=== PATIENT | male | born 1970 | race Caucasian/White ===

== ENCOUNTER 2016-06-19 00:53 | Emergency (ER) | payer MEDICAID ==
[~2016-06-19] VITALS: Ht 180.3 cm; Wt 77.1 kg
[2016-06-19] MEDS ORDERED: IBUPROFEN600 MG ORAL (02:25)
[2016-06-19 02:50] VITALS: BP_SYST 121; BP_SYST 129; BP_DIAS 67; BP_DIAS 87
--- NOTE | 2016-06-19 03:10 | Emergency Room Report ---
History of Present Illness General Chief Complaint: Lower Extremity Injury Source: Patient Present Illness HPI 45-year-old male presents to ED complaining of left ankle pain. States that yesterday he rolled his ankle, however he walked all day on it. Notes pain and swelling to left ankle, throbbing, 8/10, nonradiating. Worse with walking but is able to bear weight. Denies any other injuries. Denies any other associated symptoms Allergies: Coded Allergies: No Known Allergies (Unverified , 06/19/16) Patient History Past Medical History: none Past Surgical History: none Pertinent Family History: none Social History: Denies: alcohol use, drug use, smoking Immunizations: UTD Reviewed Nursing Documentation: PMH: Agreed, PSxH: Agreed Review of Systems All Other Systems: negative except mentioned in HPI Physical Exam Vital Signs Date Time Temp Pulse Resp B/P Pulse Ox O2 Delivery O2 Flow Rate FiO2 06/19/16 01:05 97.7 81 16 129/87 100 Room Air Sp02 EP Interpretation: reviewed, normal General Appearance: no apparent distress, alert, GCS 15, non-toxic Head: normocephalic Eyes: bilateral eye PERRL, bilateral eye normal inspection ENT: normal ENT inspection Neck: normal inspection Respiratory: normal inspection Cardiovascular #1: normal inspection Gastrointestinal: normal inspection Rectal: deferred Genitourinary: no CVA tenderness Musculoskeletal: swelling - L ankle Neurologic: alert, oriented x3, responsive, motor strength/tone normal, sensory intact, speech normal Psychiatric: normal inspection Skin: normal inspection Lymphatic: normal inspection Procedures Splinting Splinting : Consent: Verbal Pre-Made Type: KAY wrap - L ankle Pre-Proc Neuro Vasc Exam: normal Post-Proc Neuro Vasc Exam: normal Patient Tolerated: Well Complications: None Medical Decision Making Diagnostic Impression: Primary Impression: Ankle sprain Qualified Codes: S93.402A - Sprain of unspecified ligament of left ankle, initial encounter ER Course Hospital Course 45-year-old M presents to ED complaining of L ankle pain s/p trip and fall Differential diagnoses include: Fracture, dislocation, sprain, contusion Clinical course Patient placed on stretcher. After initial history and physical, I ordered pain medications and Xrays of L ankle Xrays prelim read shows no acute fracture/dislocation. placed in kay wrap, given crutches Diagnosis - ankle sprain Stable and discharged to home with prescription for Motrin. apply ice, keep elevated. weight bear as tolerated. Followup with PMD. Return to ED if symptoms recur or worsen Other X-Ray Diagnostic Results Other X-Ray Diagnostic Results : X-Ray Ordered: L ankle EP Interpretation: Yes Findings: no fractures, no dislocation, no soft tissue swelling Number of Views: 3 Last Vital Signs Date Time Temp Pulse Resp B/P Pulse Ox O2 Delivery O2 Flow Rate FiO2 06/19/16 02:50 97.7 16 129/87 100 Room Air 06/19/16 02:50 97 Status: improved Disposition: HOME, SELF-CARE Condition: Stable Scripts Ibuprofen* (MOTRIN*) 600 Mg Tablet 600 MG ORAL Q8H Y for For Pain, #30 TAB 0 Refills Prov: SHANNON CAVAZOS M.D. 06/19/16 Referrals: NOT CHOSEN AALIYAH/,REFERRING (PCP) Patient Instructions: Ankle Sprain SHANNON CAVAZOS M.D. Jun 19, 2016 03:10
--- NOTE | 2016-06-19 13:41 | Diagnostic Imaging Report ---
Indications: Left ankle trauma, pain Technique: 4 views left ankle. Findings: Comparison: None Anterolateral soft tissue swelling. No fracture, dislocation, joint space widening , soft tissue foreign body or gas, medial soft tissue swelling, or other acute changes are identified. IMPRESSION: Suspected ATFL sprain No other evidence of acute injury.
== END 2016-06-19 02:50 | disposition home or self-care (01) ==
LOC: EMR 01:15
DX: S93.402A Sprain of unspecified ligament of left ankle, initial encounter (principal); X50.1XXA Overexertion from prolonged static or awkward postures, initial encounter; Y92.9 Unspecified place or not applicable
CPT/HCPCS: 29540; 99283

== ENCOUNTER 2016-09-04 20:10 | Emergency (ER) | payer MEDICAID ==
[~2016-09-04] VITALS: Ht 180.3 cm; Wt 70.3 kg
[~2016-09-04 20:10] MED LIST: IBUPROFEN600 MG ORAL
[2016-09-04] MEDS ORDERED: NKM (20:23)
[2016-09-04 20:36] VITALS: BP 135/76
[2016-09-04] MEDS ORDERED: PERMETHRIN60 GM TOPIC (20:59)
[2016-09-04 21:16] VITALS: BP 135/76
--- NOTE | 2016-09-06 14:27 | Emergency Room Report ---
History of Present Illness General Chief Complaint: General Complaint Source: Patient Present Illness HPI Patient is a 45-year-old male who presented after increased generalized body itching. The patient reported having recent insect bites. He reported picking at his skin and removing some insects. He denies any tick bites. He denied using drugs. He denied any fever. He reported having some itchiness to the areas of concern Allergies: Coded Allergies: No Known Allergies (Unverified , 06/19/16) Patient History Past Medical History: see triage record Nursing Documentation-[facility] Past Medical History: No History, Except For Review of Systems All Other Systems: negative except mentioned in HPI Physical Exam Vital Signs Date Time Temp Pulse Resp B/P Pulse Ox O2 Delivery O2 Flow Rate FiO2 09/04/16 20:19 98.6 96 14 135/76 97 Room Air General Appearance: well appearing, no apparent distress, alert, GCS 15 Head: normocephalic, atraumatic ENT: hearing grossly normal, normal voice Neck: full range of motion, supple Respiratory: no respiratory distress, speaking full sentences Musculoskeletal: normal inspection, back normal, no calf tenderness Neurologic: normal inspection, alert, oriented x3, responsive, channel cementer III-XII nml as tested, normal gait Psychiatric: mood/affect normal Skin: other - small papular lesions to extremities, scalp Medical Decision Making Diagnostic Impression: Primary Impression: Insect bite ER Course Patient presented for skin rash. Differential diagnosis included was not limited to Elam-Dimitrios syndrome, , insect bite, urticaria, erythema multiforme, contact dermatitis. Patient's benign exam and does not appear to require any further imaging or laboratory testing at this time. The patient did not appear to have any signs of infection at this time. The patient was given a prescription for permethrin cream. The patient is advised to take over- the-counter antihistamines for itching and hydrocortisone cream. The patient is advised to follow up with primary care doctor in 1-2 days. Patient is advised to return if any worsening condition or if any changes in status that are concerning. Last Vital Signs Date Time Temp Pulse Resp B/P Pulse Ox O2 Delivery O2 Flow Rate FiO2 09/04/16 21:16 98.6 14 135/76 97 Room Air 09/04/16 20:19 96 Status: improved Disposition: HOME, SELF-CARE Condition: Stable Scripts Permethrin* (ELIMITE*) 60 Gm Cream..g. 1 APPLIC TOPIC ONCE, #1 TUBE 0 Refills Apply cream from head to toe; leave on for 8-14 hours before washing off with water Prov: Nick Mcmanus 09/04/16 Patient Instructions: Insect Bite Nick Mcmanus Sep 06, 2016 14:27
== END 2016-09-04 21:16 | disposition home or self-care (01) ==
LOC: EMR 20:53
DX: T14.8 Other injury of unspecified body region (principal); W57.XXXA Bitten or stung by nonvenomous insect and other nonvenomous arthropods, initial encounter; Y92.9 Unspecified place or not applicable; R21 Rash and other nonspecific skin eruption
CPT/HCPCS: 99283

== ENCOUNTER 2018-09-10 22:30 | Emergency (ER) | payer MEDICAID ==
[~2018-09-10] VITALS: Ht 180.3 cm; Wt 72.6 kg
[~2018-09-10 22:30] MED LIST changes: +NKM; +PERMETHRIN60 GM TOPIC
--- NOTE | 2018-09-10 22:47 | NUR ---
ER Nurse Note: Pt walked in to ER from street c/o lower bilateral pain and swelling. On appearance, pt is red from head to toe. Pt stated he has 5/10 pain when he walks since last night. Pt a&ox4, VSS. Pt ambulatory. ERMD at pt side; will continue to [facility].
[2018-09-10] MEDS ORDERED: DOXYCYCLINE MO100 MG ORAL (22:51)
[2018-09-10] MEDS ORDERED: IBUPROFEN600 MG ORAL (22:51)
--- NOTE | 2018-09-10 22:51 | Emergency Room Report ---
History of Present Illness General Chief Complaint: Abdominal Pain Source: Patient Present Illness HPI Is a 47-year-old male with no past medical history. He presents with chief complaint of bilateral feet pain. Onset today. He said there is swollen. Been walking on it all day. No nausea no vomiting. No fever chills. Denies any other complaint. Pain is 8 out of 10. Worse with walking. Allergies: Coded Allergies: No Known Allergies (Unverified , 06/19/16) Patient History Past Medical History: see triage record, old chart reviewed Past Surgical History: none Pertinent Family History: none Social History: Denies: smoking Immunizations: other Reviewed Nursing Documentation: PMH: Agreed; PSxH: Agreed Nursing Documentation-PMH Past Medical History: No History, Except For Review of Systems Eye: Denies: eye pain, blurred vision ENT: Denies: ear pain, nose congestion, throat swelling Respiratory: Denies: cough, shortness of breath Cardiovascular: Denies: chest pain, palpitations Gastrointestinal: Denies: abdominal pain, diarrhea, nausea, vomiting Musculoskeletal: Reports: muscle pain; Denies: back pain, joint pain Skin: Denies: rash Neurological: Denies: headache, numbness Endocrine: Denies: increased thirst, increased urine Hematologic/Lymphatic: Denies: easy bruising All Other Systems: negative except mentioned in HPI Physical Exam Vital Signs Date Time Temp Pulse Resp B/P (MAP) Pulse Ox O2 Delivery O2 Flow Rate FiO2 09/10/18 22:38 99.0 100 22 126/81 (96) 95 Room Air Vitals normal Sp02 EP Interpretation: reviewed, normal General Appearance: well appearing, no apparent distress, alert, other - Disheveled Head: normocephalic, atraumatic Eyes: bilateral eye PERRL, bilateral eye EOMI ENT: hearing grossly normal, normal pharynx Neck: full range of motion, supple, no meningismus Respiratory: chest non-tender, lungs clear, normal breath sounds Cardiovascular #1: regular rate, rhythm, no murmur Gastrointestinal: normal bowel sounds, non tender, no mass, no organomegaly, no bruit, non-distended Musculoskeletal: back normal, gait/station normal, normal range of motion, other - Bilateral feet: No edema. Mild edema to right ankle. He has ulceration to the dorsum of his right foot. No drainage. No crepitance. Good pulses. Neurologic: alert, oriented x3 Psychiatric: mood/affect normal Skin: other - He is severely sunburn from head to ankle Medical Decision Making Diagnostic Impression: Primary Impression: Cellulitis of foot ER Course Patient with cellulitis of his foot/feet. No trauma. No crepitance. Unlikely to be DVT. He is walking around without difficulty. Will discharge home. Last Vital Signs Date Time Temp Pulse Resp B/P (MAP) Pulse Ox O2 Delivery O2 Flow Rate FiO2 09/10/18 22:38 99.0 100 22 126/81 (96) 95 Room Air Status: unchanged Disposition: HOME, SELF-CARE Condition: Stable Scripts Ibuprofen* (MOTRIN*) 600 Mg Tablet 600 MG ORAL THREE TIMES A DAY, #30 TAB 0 Refills Prov: Gary Mahoney MD 09/10/18 Doxycycline Monohydrate* (DOXYCYCLINE MONOHYDRATE*) 100 Mg Capsule 100 MG ORAL Q12H, #14 CAP 0 Refills Prov: Gary Mahoney MD 09/10/18 Additional Instructions: Elevate feet. Follow-up with your doctor in 7 days. Return if worse. Gary Mahoney MD Sep 10, 2018 22:51
[2018-09-10 22:53] VITALS: BP 126/81
[2018-09-10 23:12] VITALS: BP 126/81
--- NOTE | 2018-09-10 23:12 | NUR ---
ER Nurse Note: Pt seen, treated, medically cleared for discharge by ERMD. Discharge instuctions and prescriptions given with repeat verbalization by pt. Mini-Cog filled out. Pt provided an address with [employer] to be discharged to. Pt stated he has [facility] and will get his prescriptions filled. ERMD and primary nurse educated pt on how to fill prescription and benefits of following up with meds. All orders completed per ERMD orders. Pt a&ox4, VSS, no signs of distress. ID band removed. Pt left with all belongings, left with own transportation.
== END 2018-09-10 23:12 | disposition home or self-care (01) ==
LOC: EMR 22:52
DX: L03.116 Cellulitis of left lower limb (principal); L03.115 Cellulitis of right lower limb
CPT/HCPCS: 99282

== ENCOUNTER 2018-09-14 00:15 | Emergency (ER) | payer MEDICAID ==
[~2018-09-14] VITALS: Ht 180.3 cm; Wt 81.6 kg
[~2018-09-14 00:15] MED LIST changes: +Cephalexin 500mg cap ORAL SCH; +DOXYCYCLINE MO100 MG ORAL
[2018-09-14] MEDS ORDERED: NKM (00:34)
--- NOTE | 2018-09-14 01:45 | NUR ---
ED Nurse Note: pt walked in c/o right ankle pain and swelling, pt reports he noticed this morning progressively worsening, denies any recent injury nor trauma. noted tenderness w/ swelling on right ankle, cms intact, cap refill <3sec, noted open small ulcer on right ankle lateral side w/ redness, will cont monitor.
[2018-09-14 02:05] VITALS: BP 135/75
[2018-09-14] MEDS ORDERED: Acetaminophen 500mg (ES) tab ORAL ONE (03:00)
[2018-09-14] MEDS ORDERED: ACETAMINOPHEN500 M3 ORAL (04:11)
[2018-09-14 04:40] VITALS: BP 114/70
--- NOTE | 2018-09-14 04:40 | NUR ---
ED Nurse Note: pt sleeping at this time, vss, resp even and unlabored on RA, will cont monitor. no sx distress, safety precaution in place.
[2018-09-14] MEDS ORDERED: Cephalexin 500mg cap ORAL ONE (04:45)
[2018-09-14] MEDS ORDERED: CEPHALEXIN500 MG ORAL (05:20)
--- NOTE | 2018-09-14 05:44 | Emergency Room Report ---
History of Present Illness General Chief Complaint: Pain Source: Patient Present Illness HPI Patient is a 47-year-old male presented after increased lower extremity discomfort. Patient had a recent ER visit for which she was noted to have similar symptoms. He reports having increased swelling and discomfort to the right lower extremity. History is limited by patient's poor cooperation. Allergies: Coded Allergies: No Known Allergies (Unverified , 06/19/16) Patient History Past Medical History: see triage record Reviewed Nursing Documentation: PMH: Agreed; PSxH: Agreed Nursing Documentation-PMH Hx Cardiac Problems: No Review of Systems All Other Systems: limited - Poor historian Physical Exam Vital Signs Date Time Temp Pulse Resp B/P (MAP) Pulse Ox O2 Delivery O2 Flow Rate FiO2 09/14/18 00:28 98.4 81 16 95 Room Air 09/14/18 02:05 135/75 General Appearance: well appearing, no apparent distress, alert, GCS 15 Head: normocephalic, atraumatic ENT: hearing grossly normal, normal voice Neck: full range of motion, supple Respiratory: no respiratory distress, speaking full sentences Musculoskeletal: no calf tenderness Neurologic: normal inspection, alert, oriented x3, normal gait Psychiatric: mood/affect normal Skin: other - slight erythema, no abscess seen Medical Decision Making Diagnostic Impression: Primary Impression: Foot pain, bilateral ER Course Patient presented for foot and ankle pain. Differential diagnosis include was not limited to sprain, cellulitis, fracture among others. Patient refused ankle x-rays. Patient's right lower extremity appears to be mildly erythematous with a small ulceration. Less than 1 cm. Patient given oral antibiotics while in the emergency department. He was given prescription for further medications. Patient was to follow-up with [facility]. He is to return if worse Last Vital Signs Date Time Temp Pulse Resp B/P (MAP) Pulse Ox O2 Delivery O2 Flow Rate FiO2 09/14/18 03:28 98.4 09/14/18 02:05 80 16 135/75 95 Room Air Status: improved Disposition: HOME, SELF-CARE Condition: Stable Scripts Cephalexin* (KEFLEX*) 500 Mg Capsule 500 MG ORAL EVERY 6 HOURS, #28 CAP Prov: Nick Mcmanus MD 09/14/18 Acetaminophen* (ACETAMINOPHEN EXTRA STRENGTH*) 500 Mg Tablet 500 MG ORAL Q8H PRN for Fever/Headache/Mild Pain, #30 TAB Prov: Nick Mcmanus MD 09/14/18 Referrals: NOT CHOSEN [facility]/,REFERRING (PCP) Patient Instructions: Cellulitis, Ankle Pain Nick Mcmanus MD Sep 14, 2018 05:44
[2018-09-14] MEDS ORDERED: ACETAMINOPHEN325 M1 ORAL (06:10)
[2018-09-14 06:46] VITALS: BP 115/75
--- NOTE | 2018-09-14 06:47 | NUR ---
ED Nurse Note: pt cleared to be d/c pe ERMD, pt discharge and aftercare instruction provided, pt given 3 day supply of medication and advised to return to ED or go to the clinic for rest of the prescription, pt advised to follow up with pcp, given list of clinic or return to ed if changes in condition, pt education done via discussion and handout, pt verbalized understanding and agrees with plan, vss, ambulatory w/ steady gait, left w/ all belongings, pt given new set of clothes, provided senior living list, provided food and juice, pt states he is supposed to meet mother today to get his ID and credit card.
== END 2018-09-14 06:48 | disposition home or self-care (01) ==
LOC: EMR 02:28
DX: M79.672 Pain in left foot (principal); M79.671 Pain in right foot; M25.572 Pain in left ankle and joints of left foot; M25.571 Pain in right ankle and joints of right foot
CPT/HCPCS: 99283

== ENCOUNTER → 2018-10-01 | Emergency (ER) | payer MEDICAID ==
[~2018-10-01] VITALS: Ht 180.3 cm; Wt 77.1 kg
[~2018-10-01] MED LIST changes: +ACETAMINOPHEN325 M1 ORAL; +ACETAMINOPHEN500 M3 ORAL; +AMOXICILLIN500 MG ORAL; +CEPHALEXIN500 MG ORAL; -Cephalexin 500mg cap ORAL SCH
--- NOTE | 2018-10-01 18:00 | NUR ---
ED Nurse Note: Patient walked into ED c/o sorethroat for 4 days. oral temperature upon triage was 99.1 F
[2018-10-01 18:18] VITALS: BP 128/85
--- NOTE | 2018-10-01 18:24 | Emergency Room Report ---
History of Present Illness General Chief Complaint: Sore Throat Source: Medical Record Present Illness HPI 47-year-old male with no significant past medical history currently homeless here complaining of 2 days of 10+ sore throat. Patient denies fever and chills , congestion, cough, ear pain. Patient is rating her pain 10 out of 10 without radiation. Denies recent travel, exposure to any allergens. Has not taken medication for his symptoms. Denies chest pain, shortness of breath, palpitation, abdominal pain, nausea vomiting. Allergies: Coded Allergies: No Known Allergies (Unverified , 06/19/16) Patient History Past Medical History: see triage record Past Surgical History: unable to obtain Pertinent Family History: none Immunizations: UTD Reviewed Nursing Documentation: PMH: Agreed; PSxH: Agreed Nursing Documentation-PMH Past Medical History: No History, Except For Hx Cardiac Problems: No Review of Systems All Other Systems: negative except mentioned in HPI Physical Exam Vital Signs Date Time Temp Pulse Resp B/P (MAP) Pulse Ox O2 Delivery O2 Flow Rate FiO2 10/01/18 17:50 99.1 101 18 130/98 (109) 97 Room Air Sp02 EP Interpretation: reviewed, normal General Appearance: normal inspection, well appearing, no apparent distress, alert Head: normocephalic, atraumatic Eyes: bilateral eye normal inspection, bilateral eye PERRL ENT: hearing grossly normal, TMs + canals normal, uvula midline, tonsillar swelling, tonsillar exudate Neck: normal inspection, full range of motion, supple Respiratory: lungs clear Cardiovascular #1: normal inspection, normal peripheral pulses, regular rate, rhythm, no edema Gastrointestinal: normal inspection, non tender, soft Genitourinary: no CVA tenderness Neurologic: alert, oriented x3 Psychiatric: normal inspection, judgement/insight normal, memory normal Skin: no rash Lymphatic: normal inspection Medical Decision Making PA Attestation All my diagnosis and treatment plans were reviewed ad discussed with my supervising physician Dr. Gauthier Homeless Attestation The treating physician has assessed and agrees that patient is medically stable for outpatient dispositon Diagnostic Impression: Primary Impression: Tonsillitis with exudate ER Course 47-year-old male with no significant past medical history currently homeless here complaining of 2 days of 10+ sore throat. Patient denies fever and chills , congestion, cough, ear pain. Patient is rating her pain 10 out of 10 without radiation. Denies recent travel, exposure to any allergens. Has not taken medication for his symptoms. Denies chest pain, shortness of breath, palpitation, abdominal pain, nausea vomiting. Ddx considered but are not limited to: strep pharyngitis, URI, tonsilitis, peritonsillar absacess, influneza Vital signs: are WNL, pt. is afebrile H&PE are most consistent with: Tonsillitis with exudate ORDERS: Amoxicillin ED INTERVENTIONS: Amoxicillin DISCHARGE: At this time pt. is stable for d/c to home. Will provide printed patient care instructions, and any necessary prescriptions. Care plan and follow up instructions have been discussed with the patient prior to discharge. Take medication as directed follow-up with primary care provider if worsening symptoms return to the emergency room Last Vital Signs Date Time Temp Pulse Resp B/P (MAP) Pulse Ox O2 Delivery O2 Flow Rate FiO2 10/01/18 18:18 99.1 92 16 128/85 99 Room Air Disposition: HOME, SELF-CARE Condition: Stable Scripts Amoxicillin* (AMOXIL*) 500 Mg Capsule 500 MG ORAL EVERY 12 HOURS for 10 Days, #20 CAP Prov: Flores Lawler 10/01/18 Patient Instructions: Tonsillitis Additional Instructions: Take medication as directed follow-up with your primary care provider Flores Lawler Oct 01, 2018 18:24
== END | disposition home or self-care (01) ==
LOC: EMR 18:25
DX: J03.90 Acute tonsillitis, unspecified (principal); Z59.0 Homelessness
CPT/HCPCS: 99282